=== PATIENT | female | born 1975 | race Caucasian/White ===

== ENCOUNTER 2021-01-19 19:10 | Emergency (ER) | payer BC ==
[~2021-01-19] VITALS: Ht 157.5 cm; Wt 58.5 kg
[2021-01-19 19:22] VITALS: BP 116/84
--- NOTE | 2021-01-19 20:46 | NUR ---
pt ambulatory to bed #5
--- NOTE | 2021-01-19 21:49 | NUR ---
45 Y/O PATIENT PRESENTS TO ED WITH DYSURIA . PT STATES " I HAVE BEEN HAVING FREQUENT UTI, AND I'M ON ANTIBIOTICS AUGMENTIN, BUT THE SYMPTOMS ARE JUST GETTING WORSE." . DENIES N/V/D; SKIN IS PINK/WARM/DRY; AAOX4 WITH EVEN AND STEADY GAIT; LUNGS CLEAR BL; HR EVEN AND REGULAR; PT DENIES ANY FEVER, CP, SOB, OR COUGH AT THIS TIME; PATIENT STATES PAIN OF 8/10 AT THIS TIME; VSS; PATIENT POSITIONED FOR COMFORT; HOB ELEVATED; BEDRAILS UP X2; BED DOWN. ER MD MADE AWARE OF PT STATUS. ALLERGIES: DOXYCYCLINE PMH: HYSTERECTOMY, TBI, IRRITABLE BOWEL SYNDROME
--- NOTE | 2021-01-19 22:23 | NUR ---
Patient being evaluated by physician at bedside.
--- NOTE | 2021-01-19 22:23 | NUR ---
Tamela jackson in [facility] - 01/19/21 at 2224 by [email or web address] BRENDON MORALES AT [facility].
--- NOTE | 2021-01-19 22:48 | NUR ---
PT TAKEN TO CT VIA W/C
[2021-01-19 22:49] LABS: BASOPHILS % (AUTO) 0.2 % (0.0-2.0); EOSINOPHILS # (AUTO) 0.6 K/uL (0-0.4); EOSINOPHILS % (AUTO) 6.3 % (0.0-4.0); HEMATOCRIT 46.4 % (36-48); HEMOGLOBIN 15.3 g/dL (12.0-16.0); LYMPHOCYTES # (AUTO) 2.2 K/uL (2.5-16.5); LYMPHOCYTES % (AUTO) 24.7 % (20.5-51.1); MEAN CORPUSCULAR HEMOGLOBIN 31 pg (27-31); MEAN CORPUSCULAR HGB CONC 33 g/dL (33-37); MEAN CORPUSCULAR VOLUME 95.1 fL (80-94); MONOCYTES # (AUTO) 0.5 K/uL (0.8-1.0); MONOCYTES % (AUTO) 5.3 % (1.7-9.3); NEUTROPHILS # (AUTO) 5.8 K/uL (1.8-7.7); NEUTROPHILS % (AUTO) 63.5 % (42.2-75.2); PLATELET COUNT (AUTO) 225 K/uL (140-450); RED BLOOD CELL COUNT(AUTO) 4.88 MIL/uL (4.20-5.40); RED CELL DISTRIBUTION WIDTH 12.8 % (11.6-13.7); WHITE BLOOD COUNT (AUTO) 9.1 K/uL (4.8-10.8)
[2021-01-19 23:08] LABS: ALBUMIN 4.2 g/dL (3.4-5.0); ANION GAP 13.5 (8-16); POTASSIUM 3.5 mmol/L (3.5-5.1); TOTAL BILIRUBIN 0.4 mg/dL (0.0-1.0)
[2021-01-20] MEDS ORDERED: IBUP-2213 PO
[2021-01-20] MEDS ORDERED: TAMS0.4C96 PO
[2021-01-20] MEDS ORDERED: PHENAZOPYRIDINE 100 MG TAB PO ONE
[2021-01-20] MEDS ORDERED: TAMSULOSIN 0.4 MG CAP PO SCH
[2021-01-20] MEDS ORDERED: ACET-8386 PO
[2021-01-20] MEDS ORDERED: KETOROLAC 60 MG/2 ML VIAL IM ONE
[2021-01-20 00:20] VITALS: BP 116/84
--- NOTE | 2021-01-20 00:20 | NUR ---
Patient discharged with v/s stable. Written and verbal after care instructions given and explained. Patient alert, oriented and verbalized understanding of instructions. Ambulatory with steady gait. All questions addressed prior to discharge. ID band removed. Patient advised to follow up with PMD. Rx of FLOMAX, HYDROCODON,IBUPROFEN given. Patient educated on indication of medication including possible reaction and side effects. Opportunity to ask questions provided and answered.
== END 2021-01-20 00:20 | disposition home or self-care (01) ==
LOC: MED 19:10
DX: N20.1 Calculus of ureter (principal); R30.0 Dysuria; Z88.1 Allergy status to other antibiotic agents; Z79.899 Other long term (current) drug therapy; Z90.710 Acquired absence of both cervix and uterus
CPT/HCPCS: 36415; 74176; 80053; 81025; 85025; 87086; 96372; 99284; J1885